=== PATIENT | female | born 1960 | race Caucasian/White ===

== ENCOUNTER 2017-06-13 15:35 | Emergency (ER) | payer SELFPAY ==
[~2017-06-13] VITALS: Ht 165.1 cm; Wt 70.0 kg
[~2017-06-13 15:35] MED LIST: LISI-360 PO; LORTA10 PO; QUET1TAB65 PO; SERT100 PO
[2017-06-13 15:36] VITALS: BP 121/87; PULSE 86; RESP 16; TEMP 99.4; O2SAT 95
--- NOTE | 2017-06-13 16:06 | PD ---
HPI Chief Complaint: Injury Time Seen by Provider: 16:04 Travel History International Travel<30 days: No Contact w/Intl Traveler<30days: No Traveled to known affect area: No History of Present Illness HPI 56-year-old female who is right handed, presents to emergency department for evaluation of injury sustained to the left distal second digit. Patient states she crushed the nail 3 or 4 days ago. It has been painful, but tolerable. She states it aches at times. She is concerned that the nail is loose and she would like it removed here in the emergency department today. No fever or chills. She has no other symptoms to report. History Past Medical Histgory Medical History: Denies Significant Hx Hx Cancer: No Social History Alcohol Use: No Tobacco Use: Yes (1/2 PPD) Allergies-Medications (Allergen,Severity, Reaction): Coded Allergies: Fish Containing Products (Unverified Allergy, Severe, HIVES, 05/17/17) acetaminophen (Unverified Allergy, Severe, NAUSEA AND ITCHING, 05/17/17) ammonia (Unverified Allergy, Severe, HIVES, 05/17/17) codeine (Unverified Allergy, Severe, RASH, 05/17/17) iodine (Unverified Allergy, Severe, 05/17/17) latex (Unverified Allergy, Severe, 05/17/17) metronidazole (Unverified Allergy, Severe, RASH, 05/17/17) potassium iodide (Unverified Allergy, Severe, 05/17/17) povidone-iodine (Unverified Allergy, Severe, 05/17/17) propoxyphene (Unverified Allergy, Severe, NAUSEA AND ITCHING, 05/17/17) sodium iodide (Unverified Allergy, Severe, 05/17/17) sodium iodide (Unverified Allergy, Severe, 05/17/17) wheat (Unverified Allergy, Severe, PT NOT ALLERGIC TO FLOUR, BLEACH ONLY, NOT A CHOICE, 05/17/17) Uncoded Allergies: POWDER IN GLOVES (Allergy, Severe, ITCH, 02/20/09) Reported Meds & Prescriptions Reported Meds & Active Scripts Active Reported Lisinopril 10 Mg Tab 15 Mg PO DAILY Lortab 10/325 Tab (Hydrocodone-Acetaminophen) 10 Mg/325 Mg Tab 1 Tab PO BID Seroquel (Quetiapine Fumarate) 200 Mg Tab 200 Mg PO DAILY Zoloft (Sertraline HCl) 100 Mg Tab 100 Mg PO HS Review of Systems Except as stated in HPI: all other systems reviewed are Neg Physical Exam Narrative GENERAL: Well-nourished, well-developed male patient in no acute distress SKIN: Focused skin assessment warm/dry. The left second digit has ecchymosis at the distal aspect of it. Cap refill is within normal limits. The nail bed is intact and is loose when palpated. No erythema or drainage. Patient has full flexion extension of the digit without difficulty. HEAD: Normocephalic. EYES: No scleral icterus. No injection or drainage. NECK: Supple, trachea midline. No JVD or lymphadenopathy. CARDIOVASCULAR: Regular rate and rhythm without murmurs, gallops, or rubs. RESPIRATORY: Breath sounds equal bilaterally. No accessory muscle use. Data Data Last Documented VS Vital Signs Date Time Temp Pulse Resp B/P (MAP) Pulse Ox O2 Delivery O2 Flow Rate FiO2 06/13/17 15:36 99.4 86 16 121/87 (98) 95 MDM Medical Screen Exam Complete: Yes Emergency Medical Condition: No Differential Diagnosis DISTAL LEFT 2ND DIGIT CRUSH INJ Narrative Course 56-year-old female presents to emergency department requesting her second nail to be removed after injury sustained 3-4 days ago. Patient appears about stress. There are no signs of infection of the affected digit. I advised the patient keep the nail in place and to follow-up with her primary care provider. I counseled her on signs and symptoms of infection at which time she said she will return if they develop. But at this time there are no urgent or emergent needs medical intervention identified. A medical screening exam was performed: At the time of evaluation the presenting medical condition was determined not to be of an emergent nature. The patient was given the option of receiving additional care, but declined. Patient was given options for additional community resources from which to obtain care. The Patient Has Been advised to seek medical attention for their presenting complaint. The patient has been advised to return to the ER at any time if an emergent condition develops. Primary Impression: Encounter for medical screening examination Condition: Stable Gertrudis To Jun 13, 2017 16:06
== END 2017-06-13 16:10 | disposition left against medical advice (07) ==
LOC: NETRI 15:35
DX: M79.645 Pain in left finger(s) (principal); F17.200 Nicotine dependence, unspecified, uncomplicated
CPT/HCPCS: 99281

== ENCOUNTER 2017-08-15 12:32 | Emergency (ER) | payer SELFPAY ==
[~2017-08-15] VITALS: Ht 167.6 cm; Wt 67.0 kg
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
[2017-08-15 12:47] VITALS: BP 121/78; PULSE 63; RESP 19; TEMP 98.3; O2SAT 96
== END 2017-08-15 13:57 | disposition left against medical advice (07) ==
LOC: NEPC 12:32
DX: Z53.21 Procedure and treatment not carried out due to patient leaving prior to being seen by health care provider (principal)
CPT/HCPCS: 99281